=== PATIENT | female | born 1995 | race African-American/Black ===

== ENCOUNTER 2017-05-25 16:39 | Emergency (ER) | payer SELFPAY ==
[~2017-05-25] VITALS: Ht 157.5 cm; Wt 65.0 kg
[2017-05-25 16:48] VITALS: BP_SYST 128; BP_SYST 134; BP_DIAS 84; BP_DIAS 95; PULSE 73; PULSE 77; RESP 14; RESP 15; TEMP 98.4; O2SAT 98
--- NOTE | 2017-05-25 18:35 | PD ---
HPI Chief Complaint: Pain: Acute or Chronic Time Seen by Provider: 18:34 Travel History International Travel<30 days: No Contact w/Intl Traveler<30days: No Traveled to known affect area: No PFSH Past Medical History ?: Not Data Data Last Documented VS Vital Signs Date Time Temp Pulse Resp B/P (MAP) Pulse Ox O2 Delivery O2 Flow Rate FiO2 05/25/17 16:48 98.4 77 14 128/84 (99) 98 Macho Delgado May 25, 2017 18:35
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
[2017-05-25] MEDS ORDERED: ACETAMINOPHEN 325 MG TAB PO ONE (19:30)
[2017-05-25 19:37] LABS: BLOOD, URINE NEG (NEG); COMMENT (UR) CULT NOT INDICATED; CULTURE IF INDICATED CULT NOT INDICATED; GLUCOSE,URINE NEG (NEG); KETONE, URINE NEG (NEG); MUCUS URINE FEW /lpf (OCC); NITRITE,URINE NEG (NEG); SQUAMOUS EPITHELIAL CELL URINE 3 /hpf (0-5); URINE COLOR LIGHT-YELLOW (YELLW/STRAW)
[2017-05-25 19:42] LABS: AUTOMATED NEUTROPHIL # 7.6 TH/MM3 (1.8-7.7); BASOPHIL # 0.1 TH/MM3 (0-0.2); BASOPHIL % 0.5 % (0.0-2.0); EOSINOPHIL # 0.2 TH/MM3 (0-0.4); EOSINOPHIL % 1.8 % (0.0-4.0); HEMATOCRIT 44.4 % (35.0-46.0); HEMO FLAGS DIFF FINAL; LYMPH % 31.4 % (9.0-44.0); LYMPHOCYTE # 4.1 TH/MM3 (1.0-4.8); MEAN CELL VOLUME 90.6 FL (80.0-100.0); MEAN CORPUSCULAR HEMOGLOBIN 30.7 PG (27.0-34.0); MEAN CORPUSCULAR HGB CONC 33.8 % (32.0-36.0); MONO % 7.3 % (0.0-8.0); PLATELET COUNT 283 TH/MM3 (150-450); RED CELL DISTRIBUTION WIDTH 12.2 % (11.6-17.2); WHITE BLOOD COUNT 12.9 TH/MM3 (4.0-11.0)
[2017-05-25 20:08] LABS: ANION GAP 8 MEQ/L (5-15); AST (GOT) 19 U/L (15-37); BICARBONATE 27.5 MEQ/L (21.0-32.0); BLOOD UREA NITROGEN 9 MG/DL (7-18); CHLORIDE 102 MEQ/L (98-107); GLOMERULAR FILTRATION RATE 113 ML/MIN (>89); POTASSIUM 3.8 MEQ/L (3.5-5.1); SODIUM (NA) 137 MEQ/L (136-145)
[2017-05-25 20:10] LABS: ALT (GPT) 21 U/L (10-53)
[2017-05-25 20:11] LABS: ALKALINE PHOSPHATASE 97 U/L (45-117); TOTAL BILIRUBIN ADULT 0.3 MG/DL (0.2-1.0)
[2017-05-25] MEDS ORDERED: DIAZEPAM 5 MG TAB PO ONE (20:15)
[2017-05-25] MEDS ORDERED: TYLE325T PO (20:31)
[2017-05-25 21:05] VITALS: BP 122/62
== END 2017-05-25 21:18 | disposition home or self-care (01) ==
LOC: NEPD 16:39
DX: M79.1 Myalgia (principal); Q21.3 Tetralogy of Fallot
CPT/HCPCS: 80053; 81001; 84703; 85025; 99283